=== PATIENT | female | born 1975 | race Caucasian/White ===

== ENCOUNTER 2020-07-08 10:23 | Day surgery (SDC) | payer OTHER ==
[2020-07-08 10:40] LABS: Specific Gravity >= 1.030 (1.005-1.030)
[2020-07-08] MEDS ORDERED: Ringers Lactate 1,000 ML IV ONE (10:52)
[2020-07-08] MEDS ORDERED: CEFAZOLIN/SWI 2gm 2 GM/20 ML SYR ONE (10:53)
[2020-07-08] MEDS ORDERED: SILVER NITRATE 1 APPL TOP ONE (15:29)
[2020-07-08] MEDS ORDERED: LIDOCAINE 1% W/EPI 1:100,000 MDV 20 ML VIAL ONE (15:29)
[2020-07-08] MEDS ORDERED: LIDOCAINE 2% MPF 5 ML VIAL ONE (15:41)
[2020-07-08] MEDS ORDERED: propofoL 200 MG/20 ML VIAL IV ONE (15:41)
[2020-07-08] MEDS ORDERED: FENTANYL CITR 100 MCG/2 ML ONE (16:05)
[2020-07-08] MEDS ORDERED: ONDANSETRON 4 MG/2 ML VIAL ONE ×2 (16:20→17:04)
[2020-07-08] MEDS ORDERED: KETOROLAC 30 MG/ML INJ ONE (16:20)
[2020-07-08] MEDS ORDERED: dexAMETHasone 10 MG/ML VIAL ONE (16:20)
[2020-07-08] MEDS: HYDROMORPHONE HCL 1 MG/ML INJ ONE ×4 (16:43→17:03)
[2020-07-08] MEDS ORDERED: PROMETHAZINE INJ 25 MG/ML AMP ONE (17:23)
[2020-07-08] MEDS ORDERED: DIPHENHYDRAMINE 50 MG/ML VIAL ONE (17:29)
[2020-07-08 18:09] VITALS: O2SAT 100
[2020-07-08] MEDS ORDERED: HYDROCODONE/APAP 5/325 MG TAB ONE (18:31)
[2020-07-08 19:21] VITALS: BP 102/56; TEMP 98.4
--- NOTE | 2020-07-08 21:21 | OP ---
Date of Procedure: 07/08/2020 Surgeon: Germaine Chapin MD Preoperative Diagnosis: Abnormal uterine bleeding due to ovulatory dysfunction/leiomyoma. Postoperative Diagnosis: Abnormal uterine bleeding due to ovulatory dysfunction/leiomyoma. Procedures Performed: Diagnostic hysteroscopy, endometrial ablation with NovaSure. Anesthesia: General with LMA. Complications: None. Drains: None. Specimens: None. Condition: Stable. Findings: Uterus was anteflexed. The cervix was significantly longer, sounding length 11.5, cervica l length 6.5 cm, calculated cavity length 5 cm, width 4.2 cm, power setting 116 pineda, and time of ab lation 1 minute 55 seconds. Excellent ablation effect. No intracavitary lesions seen even prior to the procedure. Description Of Procedure: After informed consent was verified, the patient was taken back to the OR, placed in supine fashion on the operating table, general anesthesia given. A 2 g of Ancef were give n preop. Vulva, vagina, and perineum prepped and draped in a sterile fashion. Anterior lip grasped with 2 Allis clamps and cervix was entered with a diagnostic scope. After entering the cavity, there were no intracavitary lesions. Cavity was unremarkable. Both tubal ostia were visualized. The alexis fifi was measured directly. The sounding length with the camera was 11.5 cm with the cervical length directly was 6.5 as dictated above and cavity calculated length 5 cm entered into the generator. The NovaSure device was opened up and primed. Then, the device was deployed after dilating to 14-Divehi with ease. Then, once I reached the top of the uterus, I was able to deploy the fan without any pro blems, 4.2 cm width. The external os was occluded with occluder and the cavity integrity test was do ne. Once this was passed, the ablation cycle was started, 1 minute 55 seconds on interrupted cycle, undeployed the device and removed in the usual fashion. Then, slimline scope used to re-examine the cavity and there was excellent ablation effect globally. The cavity was rinsed out. Scope removed. Instrument, needle, and sponge counts were done and were correct at the end of the case. The patien t tolerated the procedure well. She has a 1 month followup appointment with me. She fully understoo d that this procedure could or could not completely solve her pain problem, although it would be a go od option for decreasing her bleeding. She was not ready for hysterectomy. We will talk to her and re-evaluate the results of this procedure at her 1 month postop. ROLAND Voice ID: [id number] Report ID: [id number]
== END 2020-07-08 19:23 | disposition home or self-care (01) ==
LOC: OR 10:23
PROVIDERS: ATTEND Obstetrics & Gynecology
PROC: 0U5B8ZZ Destruction of Endometrium, Via Natural or Artificial Opening Endoscopic (ICD-10-PCS; principal; 2020-07-08 13:00)
DX: N93.8 Other specified abnormal uterine and vaginal bleeding (principal); N92.1 Excessive and frequent menstruation with irregular cycle; D25.9 Leiomyoma of uterus, unspecified; N94.6 Dysmenorrhea, unspecified; N92.3 Ovulation bleeding; Z20.828 Contact with and (suspected) exposure to other viral communicable diseases
CPT/HCPCS: 81025; 58563; U0002; J2704; J2550; J1200; J3010; J1100; J1170 ×2; J0690; J7120; J2405 ×2

== ENCOUNTER 2020-12-05 23:03 | Emergency (ER) | payer OTHER ==
[2020-12-06] MEDS ORDERED: DIPHENHYDRAMINE 50 MG/ML VIAL ONE (00:03)
[2020-12-06] MEDS ORDERED: FAMOTIDINE 20 MG/2 ML VIAL IV ONE (00:03)
[2020-12-06] MEDS ORDERED: METHYLPREDNISOLONE 125 MG INJ ONE (00:03)
[2020-12-06 00:17] LABS: Absolute Lymphocytes (CBC) 1.5 K/uL (0.7-4.9); Basophils % 0.5 % (0-1.3); Hematocrit 40.5 % (36.0-45.0); Lymphocytes % 11.7 % (15.3-44.8); MPV 8.3 fL (7.6-11.3); Protime INR 0.91; RBC Red Blood Cell Count 4.31 M/uL (3.86-4.86)
[2020-12-06 00:34] LABS: ALT/SGPT 22 U/L (12-78); AST/SGOT 13 U/L (15-37); Albumin 3.6 g/dL (3.4-5.0); Alkaline Phosphatase 52 U/L (45-117); BUN Blood Urea Nitrogen 17 mg/dL (7-18); Bicarbonate 25 mmol/L (21-32); Bilirubin Direct < 0.1 mg/dL (0-0.2); Bilirubin Total 0.3 mg/dL (0.2-1.0); Glucose Level 123 mg/dL (74-106); Magnesium 2.2 mg/dL (1.8-2.4); Potassium 4.3 mmol/L (3.5-5.1); Protein, Total 6.8 g/dL (6.4-8.2); Sodium Level 143 mmol/L (136-145); Troponin (Emerg Dept Use Only) < 0.02 ng/mL (0.0-0.045)
[2020-12-06] MEDS ORDERED: NA CHLORIDE 0.9% 1,000 ML ONE (00:37)
[2020-12-06] MEDS ORDERED: CLINDAMYCIN 900MG/D5W 900 MG/50 ML IVPB IV ONE (01:38)
[2020-12-06] MEDS ORDERED: AMOX/K CLAV 875 MG TAB ONE (02:02)
--- NOTE | 2020-12-06 02:42 | EDPHYS ---
Physician Documentation [facility] Name: Cierra Hardy Age: 45 yrs Sex: Female : 1975 Arrival Date: 12/05/2020 Time: 23:04 Bed 3 Private MD: ED Physician Bryant Turcios HPI: 12/05 23:45 This 45 yrs old Female presents to ER via Ambulatory with complaints of cp Allergic Reaction. 23:45 The patient presents with sore throat. cp 23:45 Onset: The symptoms/episode began/occurred today. Possible causes: antibiotics, cp tetracycline. At home the patient or guardian has treated the symptoms with nothing. Severity of symptoms: in the emergency department the symptoms are unchanged. Patient reports she was prescribed tetracycline and methyl prednisone for left upper tooth infection. PHYSICIAN/ALLERGY/IMMUNOLOGY: 23:23 LMP 12/05/2020 em Historical: - Allergies: 23:23 Tetracycline; em - PMHx: 23:23 None; em - PSHx: 23:23 ; em - Immunization history:: Flu vaccine is not up to date. - Social history:: Smoking status: Patient reports the use of cigarette tobacco products, smokes one-half pack cigarettes per day. ROS: 23:50 Constitutional: Negative for body aches, chills, fever, poor PO intake. cp 23:50 Eyes: Negative for injury, pain, redness, and discharge. cp 23:50 ENT: Positive for dental pain, sore throat, Negative for drainage from ear(s), ear pain, difficulty swallowing, difficulty handling secretions. 23:50 Cardiovascular: Positive for palpitations, Negative for chest pain, edema. 23:50 Respiratory: Negative for cough, shortness of breath, wheezing. 23:50 Abdomen/GI: Negative for abdominal pain, nausea, vomiting, and diarrhea. 23:50 MS/extremity: Positive for pain, of the left leg. 23:50 Skin: Negative for rash. 23:50 Neuro: Negative for altered mental status, headache, numbness, weakness. Exam: 23:57 Constitutional: The patient appears in no acute distress, alert, awake, cp non-diaphoretic, non-toxic, well developed, well nourished. 23:57 Head/Face: Normocephalic, atraumatic. cp 23:57 Eyes: Periorbital structures: appear normal, Pupils: equal, round, and reactive to cp light and accomodation, Extraocular movements: intact throughout, Conjunctiva: normal, no exudate, no injection, Sclera: no appreciated abnormality, Lids and lashes: appear normal, bilaterally. 23:57 ENT: External ear(s): are unremarkable, Nose: is normal, Mouth: Lips: moist, Oral mucosa: moist, Posterior pharynx: Airway: no evidence of obstruction, patent, Tonsils: no enlargement, no exudate, Uvula: midline, swelling, is not appreciated, erythema, that is mild, Dental exam: abscess, is not appreciated, dental caries, that is moderate, diffusely, pain, that is mild, specifically in the upper left first molar (#14). 23:57 Neck: ROM/movement: is normal, is supple, without pain, no range of motions limitations, no meningismus, Lymph nodes: lymphadenopathy is appreciated, anterior cervical nodes. 23:57 Chest/axilla: Inspection: normal, Palpation: is normal, no crepitus, no tenderness. 23:57 Cardiovascular: Rate: tachycardic, Rhythm: regular, Edema: is not appreciated, JVD: is not appreciated. 23:57 Respiratory: the patient does not display signs of respiratory distress, Respirations: normal, no use of accessory muscles, no retractions, labored breathing, is not present, Breath sounds: are clear throughout, no decreased breath sounds, no stridor, no wheezing. 23:57 Abdomen/GI: Exam negative for discomfort, distension, guarding, Inspection: abdomen appears normal. 23:57 Skin: no rash present. 12/06 00:04 ECG was reviewed by the Attending Physician. cp Vital Signs: 12/05 23:20 BP 123 / 88; Pulse 121; Resp 20; Temp 98.1; Pulse Ox 100% on R/A; Weight 78.47 kg; em Height 5 ft. 10 in. (177.80 cm); Pain 0/10; 12/06 01:30 BP 133 / 80; Pulse 94; Resp 18; Pulse Ox 100% on R/A; mg2 02:59 BP 123 / 81; Pulse 90; Resp 18; Pulse Ox 100% on R/A; mg2 12/05 23:20 Body Mass Index 24.82 (78.47 kg, 177.80 cm) em MDM: 12/05 23:36 Patient medically screened. 12/06 00:00 Differential diagnosis: anaphylaxis, angioedema, abscess, Gabe's angina, cp retropharyngeal abscess. 01:25 Data reviewed: vital signs, nurses notes, lab test result(s), EKG. :25 Test interpretation: by ED physician or midlevel provider: ECG. Transition of care: After a detail discussion of the patient's case, care is transferred to Bryant Turcios MD. 12/05 23:39 Order name: Basic Metabolic Panel 12/05 23:39 Order name: CBC with Diff 12/05 23:39 Order name: LFT's 12/05 23:39 Order name: Magnesium 12/05 23:39 Order name: PT-INR; Complete Time: 00:38 12/05 23:39 Order name: Troponin (emerg Dept Use Only); Complete Time: 00:38 12/05 23:39 Order name: Strep 12/05 23:40 Order name: Basic Metabolic Panel; Complete Time: 00:38 EDMT 12/06 00:39 Interpretation: Normal except: CL 110; GLUC 123; GFR 61. 12/05 23:40 Order name: CBC with Automated Diff; Complete Time: 00:38 [facility] 12/06 00:38 Interpretation: Normal except: WBC 12.70; CYNDY% 85.7; LYM% 11.7; MN% 1.6; NEUT A 10.9. 12/05 23:40 Order name: Liver (Hepatic) Function; Complete Time: 00:38 [facility] 12/05 23:40 Order name: Magnesium; Complete Time: 00:38 EDMT 12/06 00:41 Order name: Throat Culture [facility] 12/06 01:43 Order name: SARS-COV-2 RT PCR [facility] 12/05 23:39 Order name: US Extremity Venous Unilateral Ltd 12/05 23:39 Order name: XRAY Chest (1 view) 12/05 23:39 Order name: EKG; Complete Time: 23:40 12/05 23:39 Order name: Cardiac monitoring; Complete Time: 00:10 12/05 23:39 Order name: EKG - Nurse/Tech; Complete Time: 00:10 12/05 23:39 Order name: IV Saline Lock; Complete Time: 00:10 cp 02 23:39 Order name: Labs collected and sent; Complete Time: 00:10 cp 12/05 23:39 Order name: O2 Per Protocol; Complete Time: 00:10 cp 12/05 23:39 Order name: O2 Sat Monitoring; Complete Time: 00:10 cp 12/06 00:42 Order name: CT Soft Tissue Neck W/contr cp EC:04 Rate is 83 beats/min. Rhythm is regular. DE interval is normal. QRS interval is normal. cp QT interval is normal. T waves are Inverted in lead aVR. Interpreted by me. Reviewed by me. Administered Medications: 00:07 Drug: Benadryl 25 mg Route: IVP; Site: right antecubital; mg2 01:51 Follow up: Response: No adverse reaction mg2 00:07 Drug: Pepcid 20 mg Route: IVP; Site: right antecubital; mg2 01:50 Follow up: Response: No adverse reaction mg2 00:08 Drug: SOLU-Medrol 125 mg Route: IVP; Site: right antecubital; mg2 01:51 Follow up: Response: No adverse reaction mg2 00:22 Drug: NS 0.9% 1000 ml Route: IV; Rate: 1 bolus; Site: right antecubital; ea 01:50 Follow up: Response: No adverse reaction; IV Status: Completed infusion; IV Intake: mg2 1000ml 01:49 Not Given (Physician Discretion): Clindamycin 900 mg IVPB once over 30 mins; (mix in 50 mg2 mL) 01:50 Drug: Augmentin 875 mg Route: PO; mg2 03:00 Follow up: Response: No adverse reaction mg2 Disposition: 12/06/20 02:41 Discharged to Home. Impression: allergic reaction, Dental caries. - Condition is Stable. - Discharge Instructions: Dental Pain. - Prescriptions for Augmentin 875- 125 mg Oral Tablet - take 1 tablet by ORAL route every 12 hours for 10 days; 20 tablet. Ibuprofen 800 mg Oral Tablet - take 1 tablet by ORAL route every 8 hours As needed take with food; 30 tablet. - Medication Reconciliation Form, Thank You Letter, Antibiotic Education, Prescription Opioid Use form. - Follow up: Private Physician; When: Upon discharge from the Emergency Department; Reason: Recheck today's complaints, Continuance of care, Re-evaluation by your physician. - Problem is new. - Symptoms have improved. Addendum: 12/12/2020 19:17 Co-signature as Attending Physician, Bryant Turcios MD I agree with the assessment and t w4 plan of care. Signatures: Dispatcher [employer] [facility] Moi Gong, RN RN em Tomasz Lomas PA PA cp Antunez, Elena, RN RN Bryant Pimentel MD MD tw4 Travis Guevara RN RN mg2 Corrections: (The following items were deleted from the chart) 12/06 00:31 12/05 23:40 CORONAVIRUS+MR.LAB.BRZ ordered. [facility] 12/06 03:05 02:41 12/06/2020 02:41 Discharged to Home. Impression: allergic reaction; Dental mg2 caries. Condition is Stable. Forms are Medication Reconciliation Form, Thank You Letter, Antibiotic Education, Prescription Opioid Use. Follow up: Private Physician; When: Upon discharge from the Emergency Department; Reason: Recheck today's complaints, Continuance of care, Re-evaluation by your physician. Problem is new. Symptoms have improved. tw4
--- NOTE | 2020-12-06 02:42 | ER ---
Nurse's Notes [facility] Name: Cierra Hardy Age: 45 yrs Sex: Female : 1975 Arrival Date: 12/05/2020 Time: 23:04 Bed 3 Private MD: Diagnosis: allergic reaction;Dental caries Presentation: 12/05 23:20 Chief complaint: Patient states: started taking tetracycline and methylprednisolone for em tooth abscess at 8PM then at 9PM woke up with sore throat, heart racing, and numbness and tingling everywhere, denies respiratory issues or hives. Coronavirus screen: Client denies travel out of the [place] in the last 14 days. Ebola Screen: Patient negative for fever greater than or equal to 101.5 degrees Fahrenheit, and additional compatible Ebola Virus Disease symptoms Patient denies exposure to infectious person. Patient denies travel to an Ebola-affected area in the 21 days before illness onset. No symptoms or risks identified at this time. Onset: The symptoms/episode began/occurred 2 hour(s) ago. Anaphylaxis evaluation, no signs or symptoms of anaphylaxis were noted. Initial Sepsis Screen: Does the patient meet any 2 criteria? HR > 90 bpm. Yes Does the patient have a suspected source of infection? No. Patient's initial sepsis screen is negative. Risk Assessment: Do you want to hurt yourself or someone else? Patient reports no desire to harm self or others. Onset of symptoms was December 05, 2020. 23:20 Method Of Arrival: Ambulatory em 23:20 Acuity: AUDREY 3 em EXAMINATION SUPERVISOR: 23:23 LMP 12/05/2020 em Historical: - Allergies: 23:23 Tetracycline; em - PMHx: 23:23 None; em - PSHx: 23:23 ; em - Immunization history:: Flu vaccine is not up to date. - Social history:: Smoking status: Patient reports the use of cigarette tobacco products, smokes one-half pack cigarettes per day. Screenin/13 00:11 Abuse screen: Denies threats or abuse. Denies injuries from another. Nutritional mg2 screening: No deficits noted. Tuberculosis screening: No symptoms or risk factors identified. Fall Risk IV access (20 points). Assessment: 00:10 General: Appears in no apparent distress. comfortable, Behavior is calm, cooperative. mg2 Pain: Denies pain. Neuro: Level of Consciousness is awake, alert, obeys commands, Oriented to person, place, time, situation. Cardiovascular: Capillary refill < 3 seconds Patient's skin is warm and dry. Respiratory: Airway is patent Respiratory effort is even, unlabored, Respiratory pattern is regular, symmetrical, GI: No signs and/or symptoms were reported involving the gastrointestinal system. : EENT: No signs and/or symptoms were reported regarding the EENT system. Derm: Skin is intact, is healthy with good turgor, Skin is pink, warm \T\ dry. normal. Musculoskeletal: Circulation, motion, and sensation intact. Capillary refill < 3 seconds. 01:30 Reassessment: Patient appears in no apparent distress at this time. Patient and/or mg2 family updated on plan of care and expected duration. Pain level reassessed. Patient is alert, oriented x 3, equal unlabored respirations, skin warm/dry/pink. 02:59 Reassessment: Patient appears in no apparent distress at this time. Patient is alert, mg2 oriented x 3, equal unlabored respirations, skin warm/dry/pink. Vital Signs: 12/05 23:20 BP 123 / 88; Pulse 121; Resp 20; Temp 98.1; Pulse Ox 100% on R/A; Weight 78.47 kg; em Height 5 ft. 10 in. (177.80 cm); Pain 0/10; 12/06 01:30 BP 133 / 80; Pulse 94; Resp 18; Pulse Ox 100% on R/A; mg2 02:59 BP 123 / 81; Pulse 90; Resp 18; Pulse Ox 100% on R/A; mg2 12/05 23:20 Body Mass Index 24.82 (78.47 kg, 177.80 cm) em ED Course: 12/05 23:04 Patient arrived in ED. cf2 23:23 Triage completed. em 23:23 Arm band placed on. em 23:28 Travis Guevara RN is Primary Nurse. mg2 23:29 Tomasz Lomas PA is PHCP. 23:29 Bryant Turcios MD is Attending Physician. 12/06 00:05 Inserted saline lock: 20 gauge in right antecubital area, using aseptic technique. mg2 Blood collected. by MAC Restrepo. 00:11 No provider procedures requiring assistance completed. mg2 00:12 Patient has correct armband on for positive identification. mg2 00:41 US Extremity Venous Unilateral Ltd In Process Unspecified. EDMS 01:05 XRAY Chest (1 view) In Process Unspecified. EDMS 01:44 CT Soft Tissue Neck W/contr In Process Unspecified. EDMS 02:59 IV discontinued, intact, bleeding controlled, No redness/swelling at site. Pressure mg2 dressing applied. Administered Medications: 00:07 Drug: Benadryl 25 mg Route: IVP; Site: right antecubital; mg2 01:51 Follow up: Response: No adverse reaction mg2 00:07 Drug: Pepcid 20 mg Route: IVP; Site: right antecubital; mg2 01:50 Follow up: Response: No adverse reaction mg2 00:08 Drug: SOLU-Medrol 125 mg Route: IVP; Site: right antecubital; mg2 01:51 Follow up: Response: No adverse reaction mg2 00:22 Drug: NS 0.9% 1000 ml Route: IV; Rate: 1 bolus; Site: right antecubital; ea 01:50 Follow up: Response: No adverse reaction; IV Status: Completed infusion; IV Intake: mg2 1000ml 01:49 Not Given (Physician Discretion): Clindamycin 900 mg IVPB once over 30 mins; (mix in 50 mg2 mL) 01:50 Drug: Augmentin 875 mg Route: PO; mg2 03:00 Follow up: Response: No adverse reaction mg2 Intake: 01:50 IV: 1000ml; Total: 1000ml. mg2 Outcome: 02:41 Discharge ordered by . tw4 03:00 Discharged to home ambulatory. mg2 03:00 Condition: stable 03:00 Discharge instructions given to patient, Instructed on discharge instructions, follow up and referral plans. medication usage, Demonstrated understanding of instructions, follow-up care, medications, Prescriptions given X 2. 03:05 Patient left the ED. mg2 Signatures: Dispatcher [employer] EDMS Moi Gong RN RN Tomasz Camejo PA PA cp Antunez, Elena, RN RN ea Wadley, Terrence, MD MD tw4 Travis Guevara RN RN mg2 John Murcia cf2 Corrections: (The following items were deleted from the chart) 02:59 02:59 Reassessment: Patient appears in no apparent distress at this time. Patient mg2 and/or family updated on plan of care and expected duration. Pain level reassessed. Patient is alert, oriented x 3, equal unlabored respirations, skin warm/dry/pink. mg2
[2020-12-06 03:10] VITALS: TEMP 98.1; O2SAT 100
[2020-12-06 03:13] VITALS: BP 123/81
--- NOTE | 2020-12-06 09:43 | RAD REPORT ---
EXAM DESCRIPTION: US - Extremity Venous Uni Ltd - 12/06/2020 1:40 am CLINICAL HISTORY: PAIN Leg swelling and edema. COMPARISON: No comparisons FINDINGS: Left lower extremity venous system was interrogated with Doppler technique. Normal flow, c ompressibility and augmentation was noted. There is no DVT present. IMPRESSION: No evidence of left lower extremity deep venous thrombosis.
--- NOTE | 2020-12-06 11:45 | RAD REPORT ---
EXAM DESCRIPTION: RAD - Chest Single View - 12/06/2020 1:05 am CLINICAL HISTORY: PALPITATIONS Chest pain. COMPARISON: No comparisons FINDINGS: Portable technique limits examination quality. The lungs are grossly clear. The heart is normal in size. No displaced fractures. IMPRESSION: No acute intrathoracic process suspected.
--- NOTE | 2020-12-06 20:33 | RAD REPORT ---
EXAM DESCRIPTION: CT SOFT TISSUE NECK WITH IV CONTRAST CLINICAL HISTORY: SORE THROAT TECHNIQUE: Contiguous axial images obtained through the neck following the uneventful administration of IV contrast. Coronal and sagittal reformatted images were provided. This exam was performed according to our departmental dose-optimization program, which includes autom ated exposure control, adjustment of the mA and/or kV according to patient size and/or use of iterati ve reconstruction technique. COMPARISON: None available for comparison FINDINGS: Oropharynx: Unremarkable. No significant tonsillar enlargement. No peritonsillar abscess. Hypopharynx: Unremarkable Larynx: Unremarkable. Normal epiglottis. Trachea: Unremarkable Retropharyngeal space: Unremarkable Submandibular/parotid glands: Unremarkable. Normal in size. Thyroid: 8 mm hypodense nodule within the right lobe of the thyroid. Bones/joints: Periapical lucency and disruption of the buccal and to lesser extent lingual cortices a t the left maxillary 1st molar and to a lesser extent 2nd molar teeth. Thinning of the lingual cortex of the 1st maxillary molar tooth. Mild disc degeneration C4-C5 and C5-C6. Small central bulge and mo derate right foraminal narrowing at C4-C5. Soft tissues: Unremarkable Vessels: Unremarkable Lymph nodes: No pathologically enlarged lymph nodes. Paranasal sinuses: Mild left maxillary sinus mucosal thickening. Mastoid air cells: Well-aerated Lung apices: Unremarkable as visualized IMPRESSION: 1. Periapical lucency and disruption of the buccal and to lesser extent lingual cortic es at the left maxillary 1st molar and to a lesser extent 2nd molar teeth. 2. Subcentimeter incidental right thyroid nodule. No follow-up imaging is recommended. Reference: J Am Oren Radiol. 2015 Nov;12(2): 143-50 3. Other findings as above. Electronically signed by: Claudine Khan MD 12/06/2020 2:11 AM [facility] Due to temporary technical issues with the PACS/Fluency reporting system, reports are being signed by the in house radiologists without review as a courtesy to insure prompt reporting. The interpreting radiologist is fully responsible for the content of the report.
== END 2020-12-06 03:05 | disposition home or self-care (01) ==
LOC: ER 23:03
DX: K02.9 Dental caries, unspecified (principal); Z20.822 Contact with and (suspected) exposure to COVID-19; F17.210 Nicotine dependence, cigarettes, uncomplicated; Z88.1 Allergy status to other antibiotic agents
CPT/HCPCS: 96361; 87070; 85025; 80048; 36415; 83735; 85610; 80076; 87081; 84484; 70491; 71045; 93971; 96375; 96374; 99284; U0003; J7030